=== PATIENT | male | born 1950 | race Caucasian/White ===

== ENCOUNTER → 2022-06-11 | Outpatient (CLI) | payer MEDICARE | LOC: KOH-I 12:38 | DX: M25.571 Pain in right ankle and joints of right foot (principal); M25.551 Pain in right hip; M79.604 Pain in right leg; G62.9 Polyneuropathy, unspecified; M51.36 Other intervertebral disc degeneration, lumbar region; M19.071 Primary osteoarthritis, right ankle and foot | CPT/HCPCS: 72100; 73502; 73610 ==

== ENCOUNTER 2022-07-04 12:51 | Inpatient (IN) | payer OTHER, MEDICARE ==
[~2022-07-04] VITALS: Ht 188 cm; Wt 74.8 kg
[2022-07-04 13:51] LABS: HEMOGLOBIN 16.5 gm/dl (14.0-17.5); RED BLOOD COUNT 5.19 M/UL (4.20-5.50); WHITE BLOOD COUNT 6.3 K/UL (4.5-11.0)
[2022-07-04 14:30] LABS: BUN/CREATININE RATIO 12 (0-10)
[2022-07-04] MEDS ORDERED: LIPITOR80 MG PO (16:22)
[2022-07-04] MEDS ORDERED: GLIPIZIDE10 MG PO (16:23)
[2022-07-04] MEDS ORDERED: METFORMIN HCL1000 M1 PO (16:24)
[2022-07-04] MEDS ORDERED: METOPROLOL SUC200 MG PO (16:25)
[2022-07-04] MEDS ORDERED: ASPIRIN EC81 MG PO (16:26)
[2022-07-04] MEDS ORDERED: INSULIN GL100 UNIT/4 SQ (16:36)
[2022-07-05 02:03] LABS: HEMOGLOBIN 15.8 gm/dl (14.0-17.5); RED BLOOD COUNT 4.98 M/UL (4.20-5.50)
[2022-07-05 02:36] LABS: BUN/CREATININE RATIO 18 (0-10)
== END 2022-07-05 13:45 | disposition short-term general hospital (02) | DRG 281 ==
LOC: ER1 12:51 → CCU 15:11 → CDU 15:11 → CCU 18:25
PROVIDERS: Physician Assistant; Physician Assistant Medical; ADMIT Internal Medicine
DX: I21.4 Non-ST elevation (NSTEMI) myocardial infarction (principal); I16.9 Hypertensive crisis, unspecified; I25.10 Atherosclerotic heart disease of native coronary artery without angina pectoris; E11.65 Type 2 diabetes mellitus with hyperglycemia; I10 Essential (primary) hypertension; T38.3X6A Underdosing of insulin and oral hypoglycemic [antidiabetic] drugs, initial encounter; E78.5 Hyperlipidemia, unspecified; Z95.1 Presence of aortocoronary bypass graft; Z88.8 Allergy status to other drugs, medicaments and biological substances; Z91.14 Patient's other noncompliance with medication regimen; Z79.4 Long term (current) use of insulin; Z87.891 Personal history of nicotine dependence; Z82.49 Family history of ischemic heart disease and other diseases of the circulatory system; Z98.890 Other specified postprocedural states
CPT/HCPCS: 0240U; 36415; 71045; 80048; 80053; 82550; 82553; 82962; 83036; 83735; 83880; 84484; 85025; 85027; 85379; 85610; 85730; 93005; 96374; 99285; G0378; J1644